=== PATIENT | male | born 1950 | race Hispanic/Latino ===

== ENCOUNTER 2018-05-26 13:00 | Emergency (ER) | payer MEDICARE ==
[2018-05-26] MEDS ORDERED: MORPHINE SULFATE 4 MG/1ML SYG ONE (13:28)
== END 2018-05-26 15:36 | disposition home or self-care (01) ==
LOC: EDH 13:00
DX: S43.102A Unspecified dislocation of left acromioclavicular joint, initial encounter (principal); E78.5 Hyperlipidemia, unspecified; E11.9 Type 2 diabetes mellitus without complications; Z87.891 Personal history of nicotine dependence; W18.39XA Other fall on same level, initial encounter; Y93.89 Activity, other specified; Y92.098 Other place in other non-institutional residence as the place of occurrence of the external cause; Y99.8 Other external cause status
CPT/HCPCS: 71045; 73030; 73200; 96374; 99284; J2270